=== PATIENT | female | born 1950 | race Caucasian/White ===

== ENCOUNTER 2017-01-08 15:26 | Outpatient (CLI) | payer BC ==
--- NOTE | 2017-01-08 16:16 | RAD ---
PA AND LATERAL VIEWS OF CHEST: Date: 01/08/17 HISTORY: Cough. FINDINGS: The heart size is normal. The lungs are well expanded without focal areas of consolidation, pneumoth orax, or pleural effusions. There are mild degenerative changes in the spine. IMPRESSION: No radiographic evidence of acute cardiopulmonary process. POS: [facility]
== END 2017-01-08 15:27 | disposition home or self-care (01) ==
LOC: MADRAD 15:26
PROVIDERS: ATTEND Family Medicine
CPT/HCPCS: 71020